=== PATIENT | female | born 1960 | race Native Hawaiian/Other Pacific Islander ===

== ENCOUNTER 2019-03-28 08:32 | Outpatient (CLI) | payer BC | END 2019-03-28 23:49 | disposition home or self-care (01) | LOC: MAMMO 08:32 | DX: Z13.820 Encounter for screening for osteoporosis (principal); Z12.39 Encounter for other screening for malignant neoplasm of breast ==

== ENCOUNTER 2020-02-27 12:55 | Outpatient (CLI) | payer BC | END 2020-02-27 21:53 | disposition home or self-care (01) | LOC: US 12:55 | DX: R31.9 Hematuria, unspecified (principal) ==

== ENCOUNTER 2020-12-29 10:04 | Outpatient (CLI) | payer BC | END 2020-12-29 21:58 | disposition home or self-care (01) | LOC: LABW 10:04 | PROVIDERS: ATTEND Internal Medicine | DX: Z20.822 Contact with and (suspected) exposure to COVID-19 (principal) | CPT/HCPCS: 36415; 86769 ==

== ENCOUNTER 2021-01-29 08:28 | Outpatient (CLI) | payer BC | END 2021-01-29 18:57 | disposition home or self-care (01) | LOC: MAMMO 08:28 | PROVIDERS: ATTEND Internal Medicine | DX: Z12.31 Encounter for screening mammogram for malignant neoplasm of breast (principal); M81.0 Age-related osteoporosis without current pathological fracture ==

== ENCOUNTER 2022-06-29 09:47 | Outpatient (CLI) | payer BC | END 2022-06-29 19:10 | disposition home or self-care (01) | LOC: RAD 09:47 | PROVIDERS: ATTEND Internal Medicine | DX: M25.531 Pain in right wrist (principal) ==

== ENCOUNTER 2022-07-05 08:47 | Outpatient (CLI) | payer BC | END 2022-07-05 19:54 | disposition home or self-care (01) | LOC: MAMMO 08:47 | PROVIDERS: ATTEND Internal Medicine | DX: Z12.31 Encounter for screening mammogram for malignant neoplasm of breast (principal); M85.88 Other specified disorders of bone density and structure, other site ==

== ENCOUNTER 2022-12-14 09:43 | Outpatient (CLI) | payer BC | END 2022-12-14 18:55 | disposition home or self-care (01) | LOC: RAD 09:43 | PROVIDERS: ATTEND Internal Medicine | DX: M75.02 Adhesive capsulitis of left shoulder (principal); M79.602 Pain in left arm ==